=== PATIENT | male | born 2000 | race African-American/Black ===

== ENCOUNTER 2022-09-09 16:12 | Emergency (ER) | payer OTHER, SELFPAY | END 2022-09-09 16:50 | disposition home or self-care (01) | LOC: ERS 16:12 | DX: R00.2 Palpitations (principal); R11.0 Nausea; T41.295A Adverse effect of other general anesthetics, initial encounter; F17.290 Nicotine dependence, other tobacco product, uncomplicated | CPT/HCPCS: 99283 ==